=== PATIENT | female | born 1955 | race American Indian/Alaskan Native ===

== ENCOUNTER 2017-10-19 09:12 | Day surgery (SDC) | payer OTHER ==
[2017-10-18 14:57] VITALS: BMI 23.1
--- NOTE | 2017-10-19 09:54 | CP.SDSHP ---
Same Day Surgery H & P - History Proposed Procedure: colonoscopy - Previous Medical/Surgical History Cardiac: Hypertension Previous Surgical History: Mastectomy rt - Allergies Allergies: Allergies No Known Allergies Allergy (Verified 10/18/17 14:57) - Physical Exam Vital Signs: Vital Signs 10/19/17 09:41 Temperature 97.8 F Pulse Rate 90 Respiratory 20 Rate Blood Pressure 113/50 L O2 Sat by Pulse 99 Oximetry - Date & Time Date: 10/19/17 Time: 09:54 Short Stay Discharge - Short Stay Discharge Admitting Diagnosis/Reason for Visit: ENCOUNTER FOR SCREENING FOR MALIGNANT NEOPLASM OF Disposition: HOME/ ROUTINE Referrals: Devon Rosado MD [Primary Care Provider] -
[2017-10-19] MEDS ORDERED: Lactated Ringer's 500 ML IV SCH (10:00)
[2017-10-19] MEDS ORDERED: Propofol 10 mg/ml Inj (20 ML) ONE (10:06)
[2017-10-19 10:58] VITALS: TEMP 97.2
[2017-10-19 11:40] VITALS: BP 123/75; PULSE 58; RESP 16; O2SAT 97
== END 2017-10-19 11:30 | disposition home or self-care (01) ==
LOC: C.ENDO 09:12
PROVIDERS: ATTEND Colon & Rectal Surgery
DX: Z12.11 Encounter for screening for malignant neoplasm of colon (principal); D12.4 Benign neoplasm of descending colon; K64.8 Other hemorrhoids
CPT/HCPCS: 45384; 88305; J2001; J2704; J7120